=== PATIENT | male | born 1985 | race Caucasian/White ===

== ENCOUNTER 2018-07-14 21:52 | Emergency (ER) | payer OTHER ==
[~2018-07-14] VITALS: Ht 182.9 cm; Wt 74.8 kg
[2018-07-14 21:54] VITALS: BP_SYST 157
[2018-07-14 22:15] VITALS: BP_SYST 152
== END 2018-07-14 22:15 ==
LOC: SED 21:52
DX: I10 Essential (primary) hypertension (principal); Z02.89 Encounter for other administrative examinations
CPT/HCPCS: 99283